=== PATIENT | male | born 1955 | race Two or more races ===

== ENCOUNTER 2022-02-11 23:17 | Emergency (ER) | payer MEDICARE ==
[~2022-02-11] VITALS: Ht 182.9 cm; Wt 104.3 kg
--- NOTE | 2022-02-12 00:07 | NUR ---
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 NO SOB OR COUGH. AWAKE AND ALERX4 BREATHING UNLABORED, AMBULATORY WITH STEADY GAIT. AWAITING MD MENESES.
--- NOTE | 2022-02-12 01:14 | NUR ---
PT BEING TRANSPORTED TO CT VIA WHEELCHAIR
[2022-02-12] MEDS ORDERED: TETRACAINE/BENZOCAINE/BUTAMBEN 56 GM SPRAY TP ONE (02:34)
[2022-02-12] MEDS ORDERED: LIDOCAINE VISCOUS 2% UD 15 ML UDC ONE (02:38)
[2022-02-12] MEDS ORDERED: LIDOCAINE HCL/MPF 1% 30 ML VIAL IJ ONE (02:40)
[2022-02-12] MEDS ORDERED: LIDOCAINE VISCOUS 2% UD 15 ML UDC MM ONE (03:00)
[2022-02-12] MEDS ORDERED: LIDOCAINE 4% PF AMPUL 40 MG/ML AMPUL TP ONE (03:00)
--- NOTE | 2022-02-12 03:13 | NUR ---
Patient discharged to home in stable condition. Written and verbal after care instructions given. Patient verbalizes understanding of instruction.
[2022-02-12 06:01] VITALS: BP 139/84
== END 2022-02-12 06:01 | disposition home or self-care (01) ==
LOC: ER 23:22
DX: T17.228A Food in pharynx causing other injury, initial encounter (principal); I10 Essential (primary) hypertension; E78.5 Hyperlipidemia, unspecified; X58.XXXA Exposure to other specified factors, initial encounter; Y93.9 Activity, unspecified; Y92.89 Other specified places as the place of occurrence of the external cause; Y99.8 Other external cause status
CPT/HCPCS: 99284; 70490; 94640; J3490